=== PATIENT | female | born 1995 | race Caucasian/White ===

== ENCOUNTER → 2016-03-07 | Outpatient (CLI) | payer BC ==
[~2016-03-07] MED LIST: ALBUTEROL-200 PUFFS/ IH; ZOFRAN ODT4 MG PO
--- NOTE | 2016-03-07 13:50 | RADIOLOGY REPORT PS360 ---
US TRANSVAGINAL PREG HISTORY: VAGINAL BLEEDING DURING COMPARISON: None FINDINGS: There is an intrauterine gestational sac present which measures 10 x 5 x 4 mm. A yolk sac is demonstrated. A definite pole is not identified. No heart tones apparent. There is a 1.7 x 1.4 cm cyst involving the left ovary with a somewhat thickened wall suggesting a corpus luteum cyst and 1.1 x 0.9 centimeter cyst involving the right ovary. IMPRESSION: 1. There is an intrauterine gestational sac but no pole apparent. The mean sac diameter is 0.63 cm. Gestational age is 4 weeks 3 days by last menstrual period. It may to early to detect a pole. Recommend follow-up ultrasound and serial beta hCGs to confirm viable gestation 2. Probable left corpus luteum cyst
== END ==
LOC: RAD 10:10
DX: O46.90 Antepartum hemorrhage, unspecified, unspecified trimester (principal)

== ENCOUNTER → 2016-04-12 | Outpatient (CLI) | payer BC ==
[2016-04-12 17:15] LABS: LYMPH # 3.2 K/mm3 (0.7-4.5); LYMPH % 26.4 % (10-50.0)
[2016-04-12 20:09] LABS: HEMOGLOBIN 12.3 g/dL (12.2-16.2)
[2016-04-13 04:07] LABS: ABO BLOOD TYPE A; RH BLOOD TYPE POSITIVE
[2016-04-14 08:40] LABS: HIV Screen 4th Generation wRfx Non Reactive (Non Reactive)
[2016-04-15 05:40] LABS: Rapid Plasma Reagin, Quant Non Reactive (NonRea<1:1)
[2016-04-15 08:38] LABS: HBsAg Screen Negative (Negative); Rubella Antibodies, IgG <0.90 index (Immune >0.99)
== END ==
LOC: LAB 16:09
PROVIDERS: Nurse Practitioner Obstetrics & Gynecology
DX: Z34.00 Encounter for supervision of normal first pregnancy, unspecified trimester (principal)
CPT/HCPCS: G0432

== ENCOUNTER → 2016-06-19 | Outpatient (CLI) | payer BC ==
--- NOTE | 2016-06-20 10:29 | RADIOLOGY REPORT PS360 ---
US PREG COMP INDICATION: ANATOMY SCREENING OB complete anatomical survey 20 weeks TECHNIQUE: ultrasound transabdominal scanning/ MW COMPARISON: No previous relevant studies FINDINGS Single viable intrauterine gestation. Cephalic position. Cervix appears closed approximately 3.5 cm length . Anterior placenta with no previa. Inferior margin extends inferiorly clearly anterior and above the os... Complete survey performed and was unremarkable on the submitted images as in PACS.No discrete anomalies identified on survey imaging by technologist Active fetus. Three-vessel cord with satisfactory umbilical cord insertion. . Survey of brain & ventricles unremarkable. Posterior fossa cerebellum region unremarkable. Face and neck survey unremarkable. Nasion. lips. Orbits overall satisfactory on today's survey Diaphragm & views chest unremarkable. Four-chamber heart are visualized satisfactory. Cardiac cine loop included. Aortic arch imaged and grossly unremarkable. abdomen: Both kidneys noted & unremarkable. Stomach noted & satisfactory. Appears to be a female fetus spine: Survey of the spine satisfactory with no anomalies identified nor imaged Both arms and legs noted. Amniotic fluid.-Adequate. Maternal adnexa -no gross incidental findings. measurements:. Average ultrasound age 20 weeks 1 day. Gestational age = 19 week 1 day based on LMP 02/06/2016. BPD = 19 week 5 day OFD = 20 week 0 day HC = 19 week 1 day AC = 20 week 5 day FL = 20 week 5 day Heart rate = 137 BPM. Cerebellum = 20 week 3 day humerus = 20 week 5 day HC/AC = 1.6. (1.09-1.26). This Borderline to slightly low ratio reflects the relatively lower HC measurement above, as well a proportionally slightly generous appearing high abdominal circumference value as listed in the chart above.. Of doubtful significance. However The patient has had recent [employer] or latin michelle travel., this may warrant follow-up. CI = 78% (70-86%) FL/AC = 22% is WNL and ( 20-25%) FL/BPD = 75% WNL as well disease ( 79% +/- 8) IMPRESSION: -------- Single viable intrauterine gestation in cephalic position currently. 20 week 1 day = Average Ultrasound Age. Anterior placenta . No previa. Active fetus. Anatomical survey satisfactory with no prominent findings. Minor comments: Only note the HC/AC ratio is borderline to/slightly low as mentioned in text
== END ==
LOC: RAD 12:59
DX: Z36 Encounter for antenatal screening of mother (principal)

== ENCOUNTER → 2016-10-17 | Outpatient (CLI) | payer BC ==
[~2016-10-17] MED LIST changes: +IRON TABLETS325 MG PO; +PRENATAL PLUS1 TA1 PO
== END ==
LOC: LAB 18:01
DX: Z34.00 Encounter for supervision of normal first pregnancy, unspecified trimester (principal)

== ENCOUNTER → 2016-10-20 | Outpatient (CLI) | payer BC ==
--- NOTE | 2016-10-20 17:26 | RADIOLOGY REPORT PS360 ---
US BIOPHYSICAL PROFILE, US PREG FOLLOWUP SINGLE FETUS, SD RATIO UMBILICAL ARTERY: Indication: PRE ECLAMPSIA,CHECK FETUS POSITION ORDERING PHYSICIAN: Long Watson MD PATIENT AGE: 21 years FINDINGS: There is a single live fetus present in the cephalic presentation. The following parameters are obtained: Average ultrasound age is 36 weeks 4 days. Estimated due date by ultrasound is not 1117. Estimated weight is not calculated BPD: 35 weeks 5 days OFD: OFD HC: 37 weeks 2 days AC: AC FL: FL heart rate: 139 bpm. HC/AC: HC/AC Cephalic index: Cephalic index FL/BPD: FL/BPD FL/AC: FL/AC Amniotic fluid index: 10 cm Qualitative AFV: 2 breathing movements: 2 Gross body movements: 2 Tone: 2 Biophysical profile score: 8/8 Doppler evaluation of the umbilical artery: SD ratio: 2.3 Resistive index: 0.56 Fetus urinary bladder is mildly distended. Placenta: Anterior and grade 2-3. No obvious previa Cervix: Appears closed and measures 4 cm IMPRESSION: There is a single live fetus which is in cephalic presentation at 36 weeks 4 days with biophysical profile 8 of 8. heart and body motion noted
== END ==
LOC: RAD 13:00
DX: O14.13 Severe pre-eclampsia, third trimester (principal); O32.2XX1 Maternal care for transverse and oblique lie, fetus 1

== ENCOUNTER → 2016-10-21 | Outpatient (CLI) | payer BC ==
[2016-10-21 08:29] LABS: URINE COLLECTION TIME 24 HOURS
[2016-10-21 09:31] LABS: URINE TOTAL PROTEIN CONC 164 mg/24 HR (40-90)
== END ==
LOC: LAB 07:34
PROVIDERS: Nurse Practitioner Obstetrics & Gynecology
DX: Z34.00 Encounter for supervision of normal first pregnancy, unspecified trimester (principal); I10 Essential (primary) hypertension